=== PATIENT | male | born 1990 | race Caucasian/White ===

== ENCOUNTER 2020-12-16 15:14 | Emergency (ER) | payer OTHER ==
[~2020-12-16] VITALS: Ht 177.8 cm; Wt 79.4 kg
[2020-12-16 15:30] VITALS: BP_SYST 130
--- NOTE | 2020-12-16 15:30 | NUR ---
Patient to ER bed 4 evaluation. Side rails up. Assumed care.
--- NOTE | 2020-12-16 15:30 | NUR ---
pt. came in with cut to tip of left ring finger, cut it while cutting fish, denies pain, scant bleeding noted, pt. states cleaned it with water and alcohol denies any pain
--- NOTE | 2020-12-16 15:40 | NUR ---
ER at bedside examining patient.
--- NOTE | 2020-12-16 16:00 | NUR ---
Patient given written and verbal discharge instructions and verbalizes understanding. ER Dr. Sam discussed with patient the results and treatment provided. Patient in stable condition. ID arm band removed. Patient educated on pain management and to follow up with PMD. Pain Scale 0. Opportunity for questions provided and answered.
[2020-12-16 16:01] VITALS: BP_SYST 130
== END 2020-12-16 16:00 | disposition home or self-care (01) ==
LOC: SED 15:14
DX: S61.215A Laceration without foreign body of left ring finger without damage to nail, initial encounter (principal); W26.0XXA Contact with knife, initial encounter; Y93.89 Activity, other specified; Y92.89 Other specified places as the place of occurrence of the external cause; Y99.8 Other external cause status
CPT/HCPCS: 99282